=== PATIENT | male | born 1950 | race Caucasian/White ===

== ENCOUNTER 2016-07-02 14:12 | Inpatient (IN) | payer MEDICARE, BC ==
[~2016-07-02] VITALS: Ht 177.8 cm; Wt 102.5 kg
--- NOTE | ~2016-07-02 | EC ---
PATIENT:ISELA VILLEGAS DATE OF SERVICE: 07/02/16 SEX: M MEDICAL RECORD: [id number] DATE OF : [birth year] LOCATION:[facility] AGE OF PATIENT: 66 ADMISSION DATE: 07/02/16 REFERRING PHYSICIAN: INTERPRETING PHYSICIAN: ANGIE DOYLE M.D. ECHOCARDIOGRAM REPORT ECHO CHARGES 4 ECHO COMPLETE CLINICAL DIAGNOSIS: FEVER/DYSPNEA ECHOCARDIOGRAPHIC MEASUREMENTS (adult normal given) AC root (d.<3.7cm) 4.1 LV Septum d (<1.2 cm> 1.4 Valve Excursion 2.0 LV Septum (systole) 1.6 Left Atria (s.<4.0cm> 4.4 LVPW d(<1.2cm) 1.5 RV (d.<2.3cm) 5.0 LVPW (sytole) 1.7 LV diastole(<5.6CM) 4.3 MV E-F(>70mm/sec) LV systole 3.0 LVOT Diameter 2.5 MV exc.(>10mm) Est.ejection fraction (50-75%) Pericardial Effusion N DOPPLER: LVIT A 65.0 E 40.0 LA RVSP 31 LVOT 98 AOP1/2T Asc. Ao 139 RVOT RA PA AV Gradient Peak 7.70 AV Mean 3.5 AV Area 3.5 MV Gradient Peak 2.16 MV Mean 1.00 MV Area COMMENTS: Coin Collector: Dimitri MURILLO Slate Roofer Helper:Dimitri Doyle TAPE# PACS DATE OF SERVICE: 07/03/2016 REFERRING PHYSICIAN: Edison Cardoza M.D. INDICATION: Dyspnea, fever. DESCRIPTION: Left ventricle demonstrates left ventricular hypertrophy. No wall motion abnormalities are noted. His ejection fraction is in the order of 50%. Mitral valve appears structurally normal. I have not seen prolapse or regurgitation. Left atrium is mildly dilated. The aortic valve is trileaflet. ECHOCARDIOGRAM REPORT [id number] ISELA VILLEGAS There is no stenosis or regurgitation seen. Right ventricle is moderately dilated. Tricuspid valve is normal. There is mild regurgitation seen. Right ventricular systolic pressures measured at 31 mmHg. There is no pericardial effusion seen. IMPRESSION: 1. Left ventricular hypertrophy with preserved ejection fraction of 50%. 2. Mild tricuspid regurgitation. 3. No evidence of any mass or lesions to suggest endocarditis. TRANSINT:[id number] Voice Confirmation ID: [id number] DOCUMENT ID: [id number] ANGIE DOYLE M.D. CC: [id number] DICTATION DATE: 07/03/161716 BRASS BUFFER: 07/04/16 0157 ADM IN [facility] [address] [id number]
[2016-07-02] MEDS ORDERED: DURAGESIC1 PATCH .7 TRANSDERM (14:34)
[2016-07-02] MEDS ORDERED: PERCOCET 10/3251 TA1 PO (14:35)
[2016-07-02] MEDS ORDERED: LISINOPRIL10 MG PO (14:36)
[2016-07-02] MEDS ORDERED: ZIAC 5-6.25 MG1 TAB PO (14:37)
[2016-07-02] MEDS ORDERED: LEVOTHYROXINE150 MCG PO (14:37)
[2016-07-02] MEDS ORDERED: ZANTAC300 MG PO (14:38)
[2016-07-02] MEDS ORDERED: ASPIRIN EC81 M1 PO (14:38)
--- NOTE | 2016-07-02 15:15 | NUR ---
ASSESSMENT PER ADMIT PACK.PT WITHOUT DISTRESS AT PRESENT.CALL LIGHT IN REACH.ORIENTATION TO ROOM.
[2016-07-02 15:22] VITALS: BP 144/82; BMI 31.3
[2016-07-02 17:31] LABS: HEMATOCRIT 50.4 % (42.0-54.0); HEMOGLOBIN 15.9 g/dL (13.5-17.5); MCH 25.8 pg (26.0-34.0); MCHC 31.5 g/dL (31.0-37.0); MCV 81.8 fL (80.0-100.0); MEAN PLATELET VOLUME 9.9 fL (7.4-10.4); PLATELET COUNT 164 10x3/uL (130-400); RBC 6.16 10x6/uL (4.20-6.10); WBC 21.7 10x3/uL (4.8-10.8)
[2016-07-02 17:51] LABS: EOSINOPHILS 2 % (0-7); LYMPHOCYTES 8 % (15-50); MONOCYTES 1 % (2-11); NEUTROPHILS 89 % (40-80); PLATELET ESTIMATE NORMAL
[2016-07-02 18:07] LABS: ALBUMIN 2.9 g/dL (3.4-5.0); ANION GAP 9.7 mmol/L (8-16); BILIRUBIN - TOTAL 0.92 mg/dL (0.2-1.3); CALCIUM 8.1 mg/dL (8.5-10.1); CREATININE - SERUM 1.3 mg/dL (0.6-1.3); POTASSIUM - SERUM 3.7 mmol/L (3.5-5.1); PROTEIN - SERUM 6.4 g/dL (6.4-8.2)
[2016-07-02 20:00] VITALS: BP 139/70
[2016-07-02 23:54] VITALS: BP 111/69
--- NOTE | 2016-07-03 03:08 | NUR ---
RESTING WITH EYES CLOSED, HOB ELEVATED, NO DISTRESS NOTED, VISITOR IN ROOM SLEEPING, CL IN REACH
[2016-07-03 05:48] LABS: BASOPHILS 0.2 % (0-2); EOSINOPHILS 0.1 % (0-7); HEMATOCRIT 51.8 % (42.0-54.0); HEMOGLOBIN 15.8 g/dL (13.5-17.5); IMMATURE GRANULOCYTES 0.4 % (0-5); LYMPHOCYTES 5.2 % (15-50); MCH 25.7 pg (26.0-34.0); MCHC 30.5 g/dL (31.0-37.0); MCV 84.4 fL (80.0-100.0); MEAN PLATELET VOLUME 10.5 fL (7.4-10.4); MONOCYTES 5.3 % (2-11); NEUTROPHILS 88.8 % (40-80); PLATELET COUNT 159 10x3/uL (130-400); RBC 6.14 10x6/uL (4.20-6.10); RDW 16.9 % (11.5-14.5); WBC 16.2 10x3/uL (4.8-10.8)
[2016-07-03 06:06] LABS: ALBUMIN 2.6 g/dL (3.4-5.0); ANION GAP 8.9 mmol/L (8-16); BILIRUBIN - TOTAL 0.87 mg/dL (0.2-1.3); CARBON DIOXIDE 30.7 mmol/L (21.0-32.0); CREATININE - SERUM 1.4 mg/dL (0.6-1.3); MAGNESIUM - SERUM 2.1 mg/dL (1.8-2.4); PHOSPHOROUS 3.4 mg/dL (2.5-4.9); POTASSIUM - SERUM 3.6 mmol/L (3.5-5.1); PROTEIN - SERUM 6.2 g/dL (6.4-8.2)
--- NOTE | 2016-07-03 07:50 | NUR ---
ASSESSMENT PER FLOW SHEET.PT WITHOUT DISTRESS.CALL LIGHT IN REACH
[2016-07-03 08:03] VITALS: BP 118/64
[2016-07-03 10:47] VITALS: Ht 177.8 cm; Wt 102.5 kg
[2016-07-03 12:33] VITALS: BP 97/63
--- NOTE | 2016-07-03 13:00 | NUR ---
BED CHANGE AND SHOWER.PT WITHOUT DISTRESS.CALL LIGHT IN REACH
[2016-07-03 15:34] VITALS: BP 108/68
--- NOTE | 2016-07-03 18:55 | NUR ---
REMAINS WITHOUT NEEDS,WITHOUT CHANGE.CONT PLAN OF CARE
[2016-07-03 20:00] VITALS: BP 114/73
--- NOTE | 2016-07-03 21:45 | NUR ---
INFORMED LUCIA LUU THAT THE PATIENT WOULD LIKE HIS PAIN MEDICATION WHEN IT IS DUE AT 2215. PATIENT IS RESTING IN BED WITH GUEST AT BEDSIDE AND DENIES OTHER NEEDS AT THIS TIME. BED IN LOWEST POSITION AND CALL LIGHT WITHIN REACH. ENCOURAGED THAT PATIENT TO CALL IF HE HAS FURTHER NEEDS.
[2016-07-04] VITALS: BP 110/69
[2016-07-04 04:00] VITALS: BP 118/69
[2016-07-04 05:23] LABS: BASOPHILS 0.1 % (0-2); EOSINOPHILS 0.5 % (0-7); HEMATOCRIT 46.8 % (42.0-54.0); HEMOGLOBIN 14.3 g/dL (13.5-17.5); IMMATURE GRANULOCYTES 0.3 % (0-5); LYMPHOCYTES 4.6 % (15-50); MCH 25.2 pg (26.0-34.0); MCHC 30.6 g/dL (31.0-37.0); MCV 82.5 fL (80.0-100.0); MEAN PLATELET VOLUME 9.7 fL (7.4-10.4); MONOCYTES 9.7 % (2-11); NEUTROPHILS 84.8 % (40-80); PLATELET COUNT 151 10x3/uL (130-400); RBC 5.67 10x6/uL (4.20-6.10); RDW 16.4 % (11.5-14.5)
[2016-07-04 05:42] LABS: WBC 10.6 10x3/uL (4.8-10.8)
[2016-07-04 05:51] LABS: ALBUMIN 2.4 g/dL (3.4-5.0); BILIRUBIN - TOTAL 0.67 mg/dL (0.2-1.3); CALCIUM 7.8 mg/dL (8.5-10.1); CREATININE - SERUM 1.3 mg/dL (0.6-1.3)
--- NOTE | 2016-07-04 07:30 | NUR ---
RECIEVED PT DURING WALKING ROUNDS, PT RESTING PT DURING WALKING ROUNDS PT RESTING COMFORTABLY IN BED WITH NO COMPLAINTS OF PAIN OR DISCOMFORT AT THIS TIME. BED IN LOW POSITION AND CALL LIGHT WITHIN REACH. WILL CONTINUE TO MONITOR.
[2016-07-04 07:57] VITALS: BP 99/58
--- NOTE | 2016-07-04 11:15 | NUR ---
IV OUT AT THIS TIME DUE TO INFILTRATION, SLIGHT REDNESS NOTED. IV RESITED TO RIGHT FOREARM, 22G FLUSHED WITH 10CC OF NS AND SECURED WITH OP-SITE AND TAPE. FLUIDS RESTARTED AT THIS TIME. BED IN LOW POSITION AND CALL LIGHT WITHIN REACH. WILL CONTINUE TO MONITOR.
[2016-07-04 12:41] VITALS: BP 103/68
--- NOTE | 2016-07-04 13:30 | NUR ---
IV TO LEFT HAND LEAKING. CATHETER D/C WITH TIP INTACT. DENIES NEEDS. AT BEDSIDE. NO COUGH NOTED.
[2016-07-04 15:57] VITALS: BP 125/88
[2016-07-04 20:00] VITALS: BP 135/84
--- NOTE | 2016-07-04 20:13 | NUR ---
OLD FENTANYL REMOVED FROM RIGHT SHOULDER INNER ASPECT, NEW PLACED ON RIGHT SHOULDER BLADE OUTTER ASPECT.
--- NOTE | 2016-07-05 02:28 | NUR ---
EYES CLOSED RESPIRATIONS WITH EAS AND UNLABORED.
[2016-07-05 06:05] LABS: BASOPHILS 0.1 % (0-2); EOSINOPHILS 1.7 % (0-7); HEMATOCRIT 45.5 % (42.0-54.0); HEMOGLOBIN 13.8 g/dL (13.5-17.5); IMMATURE GRANULOCYTES 0.3 % (0-5); LYMPHOCYTES 7.8 % (15-50); MCH 25.2 pg (26.0-34.0); MCHC 30.3 g/dL (31.0-37.0); MEAN PLATELET VOLUME 9.4 fL (7.4-10.4); MONOCYTES 9.1 % (2-11); PLATELET COUNT 170 10x3/uL (130-400); RBC 5.48 10x6/uL (4.20-6.10); RDW 16.3 % (11.5-14.5)
[2016-07-05 06:25] LABS: WBC 7.8 10x3/uL (4.8-10.8)
[2016-07-05 06:52] LABS: ALBUMIN 2.4 g/dL (3.4-5.0); ANION GAP 10.3 mmol/L (8-16); BILIRUBIN - TOTAL 0.5 mg/dL (0.2-1.3); CALCIUM 7.8 mg/dL (8.5-10.1); CREATININE - SERUM 1.3 mg/dL (0.6-1.3); POTASSIUM - SERUM 3.3 mmol/L (3.5-5.1)
--- NOTE | 2016-07-05 07:10 | NUR ---
RE[PORT RECEIVED FROM BACK HANGER NURSE. CALL LIGHT IN REACH.
[2016-07-05 07:58] VITALS: BP 129/76
--- NOTE | 2016-07-05 08:40 | NUR ---
ASSESSMENT COMPLETED. PERCOCET PO WITH AM MEDS ADMINISTERED. REFUSES NASAL SPRAY. SCDs OFF AT THIS TIME. IN ROOM. CALL LIGHT IN REACH. WILL CONTINUE WITH PLAN OF CARE.
--- NOTE | 2016-07-05 09:10 | NUR ---
LYING IN BED AT THIS TIME. RESPIRATIONS EVEN AND NON LABORED WITH OXYGEN ON 2L VIA NC. SCD'S OFF AT THIS TIME. SRX2 WITH BED IN LOWEST POSITION AND WHEELS LOCKED. AT BEDSIDE AND CALL LIGHT IN REACH. WILL CONTINUE WITH PLAN OF CARE.
--- NOTE | 2016-07-05 10:50 | NUR ---
ASSISTED PATIENT WITH SHOWER.
--- NOTE | 2016-07-05 11:39 | NUR ---
ALEJANDRO PETERS. [facility] IS NOT ON FLOOR. NOTIFIED JOHNNY WITH PHARMACY.
--- NOTE | 2016-07-05 11:52 | NUR ---
[facility] PO. NEW BAG OF SALINE INFUSING D/T ABX GOING AT THIS TIME. NEW BAG IS BEING USED FOR KCL SO IV WILL NOT BURN.
[2016-07-05 11:54] VITALS: BP 129/76
[2016-07-05 12:12] LABS: IMMUNOGLOBULIN E 75 IU/mL (0-100)
--- NOTE | 2016-07-05 12:50 | NUR ---
DENIES NEEDS AT THIS TIME. CALL LIGHT IN REACH.
[2016-07-05 13:12] LABS: IMMUNOGLOBULIN A 169 mg/dL (61-437)
[2016-07-05] MEDS ORDERED: FLORAJEN3 CAPS460 MG PO (13:48)
[2016-07-05] MEDS ORDERED: PULMICORT0.5 MG/21 UPD (13:48)
[2016-07-05] MEDS ORDERED: ROBITUSSIN DM 110 ML PO (13:48)
[2016-07-05] MEDS ORDERED: IPRAT-ALBUT 0.5-3 ML UPD (13:49)
[2016-07-05] MEDS ORDERED: FLUTICASONE PRO16 GM NASAL (13:49)
[2016-07-05] MEDS ORDERED: LEVAQUIN750 MG PO (13:50)
--- NOTE | 2016-07-05 14:13 | NUR ---
Patient Name: ISELA VILLEGAS Admission Status: Elective Accout number: [id number] Admission Date: 07-02-2016 : 1950 Admission Diagnosis: Attending: IFEANYI Current LOS: 3 Anticipated DC Date: 07-05-2016 Planned Disposition: Home Primary Insurance: MEDICARE A & B Discharge Planning Comments: CM MET WITH PATIENT AND (ROMMEL) REGARDING D/C NEEDS AND PLANS. PATIENT STATED HIS WILL DRIVE HIM HOME AT DISCHARGE AND THEY HAVE 5 STEPS W/RAILS TO ENTER HOME AND 2 FLIGHTS W/RAILS INSIDE. PATIENTS STATED THEY STAY ON MAIN FLOOR. PATIENT IS INDEPENDENT WITH HIS CARE AND HAS OXYGEN AND A NEBULIZER AT HOME. PATIENTS PCP IS DR. LAZO AND PHARMACY IS [facility] [address]. PATIENT HAS NOT HAD HOME HEALTH AND HAS REFUSED IT. CM WILL CONTINUE TO FOLLOW PATIENT WITH D/C NEEDS AND PLANS. PCP DR[facility]- [phone] ROMMEL () [phone] Real Estate Assistant: Alexandra Rincon Is the patient Alert and Oriented? Yes 0 * How many steps to enter\exit or inside your home? 5/2 FLIGHT 0 * PCP DR. LAZO 0 * [facility] * Preadmission Environment Home with Family 0 * ADLs Independent 0 * Equipment Nebulizer Oxygen 0 * List name and contact numbers for known caregivers / representatives who currently or will assist patient after discharge: ROMMEL () [phone] 0 * Community resources currently utilized None 0 * Additional services required to return to the preadmission environment? Yes 0 * Can the patient safely return to the preadmission environment? Yes 0 * Has this patient been hospitalized within the prior 30 days at any hospital? No 0 Grand Total: 0
--- NOTE | 2016-07-05 14:20 | NUR ---
PERCOCET PO PER PATIENT REQUEST D/T PAIN OF 6. REFUSES ROBITUSSIN. WAITING ON DC PAPERWORK.
--- NOTE | 2016-07-05 15:40 | NUR ---
DC INSTRUCTIONS EXPLAINED TO PATIENT AND . VERBALIZED UNDERSTANDING. DC'D TO VEHICLE VIA WC WITH .
[2016-07-06] MEDS ORDERED: PULMICORT0.5 MG/21 UPD (13:06)
== END 2016-07-05 15:40 | disposition home or self-care (01) | DRG 178 ==
LOC: D.MS 14:12
PROVIDERS: Internal Medicine Pulmonary Disease; ADMIT Family Medicine
DX: J69.0 Pneumonitis due to inhalation of food and vomit (principal); J44.0 Chronic obstructive pulmonary disease with (acute) lower respiratory infection; J44.1 Chronic obstructive pulmonary disease with (acute) exacerbation; J98.11 Atelectasis; E87.1 Hypo-osmolality and hyponatremia; J15.4 Pneumonia due to other streptococci; E03.9 Hypothyroidism, unspecified; K21.9 Gastro-esophageal reflux disease without esophagitis; E87.6 Hypokalemia; G47.33 Obstructive sleep apnea (adult) (pediatric); H91.90 Unspecified hearing loss, unspecified ear

== ENCOUNTER → 2018-09-13 09:39 | Outpatient (CLI) | payer MEDICARE, BC ==
[2016-07-03 10:47] VITALS: BMI 32.4
[~2018-09-13 09:39] MED LIST: ASPIRIN EC81 M1 PO; DURAGESIC1 PATCH .7 TRANSDERM; FLORAJEN3 CAPS460 MG PO; FLUTICASONE PRO16 GM NASAL; IPRAT-ALBUT 0.5-3 ML UPD; LEVAQUIN750 MG PO; LEVOTHYROXINE150 MCG PO; LISINOPRIL10 MG PO; PERCOCET 10/3251 TA1 PO; PULMICORT0.5 MG/21 UPD; ROBITUSSIN DM 110 ML PO; ZANTAC300 MG PO; ZIAC 5-6.25 MG1 TAB PO
== END | disposition home or self-care (01) ==
LOC: D.HCCARDIO 09:39
PROVIDERS: ATTEND Internal Medicine Cardiovascular Disease
DX: I20.9 Angina pectoris, unspecified (principal)